=== PATIENT | female | born 1960 | race Caucasian/White ===

== ENCOUNTER 2024-06-03 15:13 | Inpatient (IN) | payer BC, SELFPAY ==
[2024-06-03] VITALS (12 sets, daily range): BP systolic 109–141; BP diastolic 71–98; BMI 33.9
--- NOTE | 2024-06-03 10:38 | W.PN.CARDCBS ---
Addendum entered and electronically signed by Aroldo Epstein DO 06/03/24 15:16:
Attestation: I have seen and examined the patient. I can confirm Ms. Gregory's findings and I agree with her assessment and plan as documented.
63-year-old female with complex past medical history including hypertension, hyperlipidemia, SLE, rheumatoid arthritis, total knee arthroplasty complication requiring chronic narcotic use, ascending aortic aneurysm, PAF status post PVI (01/09/2021)
with posterior thalamic CVA (10/2022) transferred from [facility]. The patient originally presented to [facility] and septic shock from multifocal pneumonia. She was aggressively volume repleted and started on pressors. She required
intensive care. She was placed on broad-spectrum antibiotics. She complained of right upper quadrant pain which was evaluated with CT and ultrasound, both of which were unrevealing. There is right upper quadrant pain was ultimately felt to be
referred pain from her pneumonia as it abated with recovery of her pulmonary function. She has completed a course of antibiotics with today being her last dose of amoxicillin/clavulanic acid.
After 3-4 days of admission and treatment, the patient was generally improving but began to complain of left-sided chest pain with associated dizziness and hypotension. She had persistent nausea which had been present throughout her entire
hospitalization. Troponin was initially positive on 150 at the time of admission but did trend down. Unfortunately, the troponin remained low-level positive, never entirely normalizing in spite of resolution of her sepsis and acute kidney injury.
She has a chronic left bundle branch block but developed sinus tachycardia. Cardiology was consulted during this admission and prescribed metoprolol and amiodarone which assisted with heart rate control. Echocardiogram was performed and showed a
new cardiomyopathy with possible distal anteroapical hypokinesis, LVEF estimated at 40-45%. Given her dizziness, she underwent CT head which was negative. Because of her new cardiomyopathy with low-level troponin elevation and regional wall motion
abnormality, [facility] was consulted for cardiac catheterization.
On arrival, the patient reports that she is currently chest pain-free. She reports that she has been having left-sided chest discomfort when she performs any activity. She ambulates with a walker at baseline due to neuropathy from medication as
well as the chronic pain from her total knee replacement and degenerative disc disease. When she is active, such as vacuuming at home, she reported chest discomfort, similar to that which she felt at [facility]. She denies any explicit
dizziness at the time of my interview.
She underwent cardiac catheterization to clarify her coronary anatomy. Her coronary angiography demonstrates no significant coronary artery disease.
The internal medicine service has been very gracious, agreeing to admit the patient to their service for ultimate disposition. From a cardiac standpoint, we will focus on adding guideline directed medical therapy for her cardiomyopathy. We will
maintain apixaban 5 mg twice daily for secondary prevention of CVA.
Physical therapy and Occupational Therapy will be consulted.
Original Note:
Today's Communication / Plan
-
C today
resume eliquis post cath when stable
check creat post dye load
Impression / Plan
-
This is the CARDIOLOGY CONSULT summary.
Full consult scanned into chart.
PCP: Jurgen Wells MD
CDY: Thanh rBowne MD
64 y/o, PMH sig for PAF w/prior PVI (12/2020), CVA (10/2022), stable thoracic Ao aneurysm, LBBB, HTN, HLD, Lupus, RA, pulmonary nodules, spinal compression fracture with chronic opioid dependence, lymphedema, osteomyelitis, DJD, anxiety. FH CAD
w/father having 4 NH before age 41, PCI and CABG. Non smoker, non drinker.
Presented to [facility] ER on 05/25/24 with generalized weakness with GI issues including diarrhea, nausea, vomiting. She was septic with BPs 60s and HR 150s in rapid AF, lactic acid up to 16, creat up to 2.0, CT chest with multifocal pna, coronary
calcifications, partially imaged left thyroid mass, and gallstones with distended gallbladder. Treated per sepsis protocol requiring pressors, fluid replacement, and antibiotics. She improved and had complained of some chest pain/discomfort. HS
troponins elevated 150-140s. Echo on 05/30 with decreased LVSF, EF 40%, septal DK and inferior HK.
She has remained stable off pressors and transferred for [facility] today.
Echo 05/30- mild LV enlargement w/mild CLVH, mild-mod LV dysfunction w/EF 40%, septal DK, inf HK, impaired LV relaxation
mild bi-atrial enlargement, limited view of AV, mod-severe - PG 39/MG 23, CHACORTA 1/21cm2, c/w low flow/low gradient d/t decreased EF.
PASP 41, mild pulm HTN, small pericardial effusion without tamponade.
IMPRESSION/PLAN:
Acute sepsis/Multifocal PNA/cholecystitis
improved status
will need followup diagnostics
to be managed per admitting service
ACS/Cardiomyopathy, EF 40%
EF drop from 50% (10/2022) to 40%
elevated troponin 155-->143- likely demand ischemia d/t sepsis but cannot rule out CAD
coronary calcifications noted on CT chest
[facility] today
aspirin given this morning
continue metoprolol if BP can tolerate
monitor creat post dye load
plan pending cath results
followup at [facility] at d/c
JULIETH- baseline creat 0.9 and had been up to 2.0
today it's 0.7, GFR>60
will hydrate post cath and repeat in AM
PAF, prior PVI (12/2020)
currently in SR 90s w/LBBB
[id number] (gender, htn, cva)
eliquis on hold for heparin gtt- resume post cath when stable
HLD- check lipid profile
continue statin, cholestyramine
CVA (10/2022)
prior TIA (2017) r/t PFO- treated at [facility]- not noted on echo from 10/2022
stable with resolution of presenting symptoms but has slow speech with some slurring of words noted, as before
continue aspirin
Thoracic Ascending Ao Aneurysm-
4.8cm on CT scan 11/2020- stable compared to prior imaging
recent outpt CT Chest ordered- authorization just granted- pt to schedule
Spinal compression fx/Chronic pain with opioid dependence
RA/Lupus- on chronic steroids
Lymphedema- LE wraps, managed per PCP
Progress Note - Licensed Insurance Sales Agent
Subjective
Date of Service: June 03, 2024
--- NOTE | 2024-06-03 14:40 | ITS.CL.CATH ---
Supervisor Respiratory - Catheterization
Cardiac Catheterization
Procedure Report:
CARDIAC CATHETERIZATION REPORT
Date of Procedure: 06/03/2024
Referring: Aroldo Saleem D.O.
INDICATION: New cardiomyopathy, low-level troponin elevation.
PROCEDURE:
1. Coronary angiography.
A total of 27 minutes of procedural/moderate sedation was utilized. An independent forensic medical examiner was present to assist with and help manage the patient's level of consciousness and physiologic status.
ACCESS:
1. 6 Libyan right radial artery using a modified Seldinger technique.
CATHETERS:
1. 5 Libyan JR4.
2. 5 Libyan JL 5.
HEMODYNAMIC DATA
Weight (kg): 116.6
AO (s/d/x, mmHg): 118/88/103
LV (s/x mmHg): Not obtained.
LEFT VENTRICULOGRAPHY: Not performed.
CORONARY ANGIOGRAPHY
Dominance: Right.
Left Main: Large size, trifurcating vessel. There is no coronary artery disease.
LAD: Normal size vessel giving rise to 1 significant diagonal before wrapping around the apex. There is a 30-40% lesion in the ostium of the diagonal.
Ramus: Large size vessel supplying the overwhelming majority of the lateral wall. There is no coronary artery disease.
Circumflex: Normal size, nondominant vessel that is essentially a single obtuse marginal. There is no coronary artery disease.
RCA: Normal size, dominant vessel. There are minor luminal irregularities. There is mild to moderate tortuosity of the mid vessel.
INTERVENTION(S)
None.
Closure Device: Vascular band.
Radiation (mGy): 363.32
DAP (cm2.Gy): 30.7711
Fluoroscopy time (minutes): 2.9
CONCLUSIONS
1. Right dominant circulation with luminal irregularities in the RCA and a 30-40% lesion in the ostium of the diagonal.
2. No ischemic nidus for troponin elevation.
RECOMMENDATIONS:
1. Expectant management after cardiac catheterization via right radial approach.
2. Limited weight bearing on the right wrist for one week.
3. OMT/GDMT as hemodynamics to tolerate.
4. Primary prevention with high-dose, high potency statin.
5. Surveillance of aortic valve given progression to moderate/severe.
6. Repeat echocardiogram in 90 days after initiation of GDMT.
Copy to: Sheila Browne M.D., Aroldo Saleem D.O., Jurgen Wells M.D.
Aroldo Epstein DO, FACC, FACP
[2024-06-03] MEDS: NSS 1000 IV (15:10)
--- NOTE | 2024-06-03 15:12 | HPS.HSE ---
Addendum entered and electronically signed by Eliseo Rosales MD 06/03/24 16:01:
I saw and examined the patient.
The WASTE MACHINE OFFBEARER's note was reviewed and I agree with the note.
Patient is a 64-year-old female with past medical history of thalamic stroke, history of seizures, chronic pain and narcotic dependence, history of goiter, paroxysmal atrial fibrillation with history of ablation/PVI, moderate to severe aortic
stenosis, essential hypertension, rheumatoid arthritis on chronic steroids, history of lupus, degenerative spine, osteoporosis, Gilbert's disease was sent from [facility] for impression emergent heart catheterization. Patient was
hospitalized at [facility] last week and was diagnosed to have multifocal pneumonia/septic shock and was started on broad-spectrum antibiotic and vasopressors. Patient had improvement of his symptoms although after 3 to 4 days
posthospitalization patient started to having sternal chest discomfort. Patient already was known to having hide troponin of 100+ on admission which was attributed to septic shock. Patient was also having sinus tachycardia for which patient was
started on amiodarone/Toprol. Cardiology was involved in care who evaluated patient and echocardiogram showed decline in EF to 40% and moderate to severe . cardiology at [facility] recommended for patient to undergo heart catheterization for
further evaluation of coronary artery disease. Patient was sent to [place] and underwent left heart catheterization by cardiology, which showed noncritical RCA stenosis, no stenting was done. Post heart catheterization patient being transferred
to telemetry floor for further monitoring. Hospitalist service were contacted for admission and management of other noncardiac problems.
HEENT: No pallor, cyanosis, or jaundice. Throat clear.
NECK: Supple. No JVD.
RESPIRATORY: Lungs clear to auscultation.
CVS: S1, S2 normal. RRR. No murmur, rub or gallop.
ABDOMEN: Soft, non-tender. No distension. BS+/normal.
EXTREMITIES: No peripheral cyanosis or edema.
MANAGER INSTALLATION: AOx3. No focal deficits.
Chest pain - ACS ruled out
Troponin elevation from Type II OK
Acute systolic heart failure
-Patient have undergone left heart catheterization today and did not show any critical coronary stenosis, no stenting was done
-Echocardiogram showed decline in EF of 40%, moderate to severe
-Cardiology planning for patient to be restarted on GDMT
-Monitor volume may require diuretic dosing if any signs of volume
recovering multifocal pneumonia
Resolved septic shock
-patient finished course of antibiotic at [facility]
-Reported episode of fever yesterday by hospitalist at [place]
- Monitor temperature curve and repeat septic workup if patient starts spiking fever again
-Continue monitoring off of antibiotic
Chronic pain and narcotic dependence
-Continue patient on oxycontin 30mg q12h prn and Oxycodne IR 10mg prn
RA
h/o of Lupus
-patient on chronic steroids of prednisone 5mg/d
-Also on xeljanz bid, will hold fo
-continue for now
Full code
Original Note:
Family Physician
-
Family Physician: Jurgen Wells
Chief Complaint
-
Chest Pain
History of Present Illness
Patient is a 64 y/o female past medical history of prior left thalamic stroke, paroxysmal atrial fibrillation, CPRS, chronic opioid dependence, rheumatoid arthritis and lupus who transferred from [facility] ([facility]) to [facility] () for cardiac catheterization. Patient was initially admitted to [facility] on May 25 for septic shock secondary to pneumonia. Initially she required intensive care management with pressors, IVFs and IV antibiotics. Patient's troponin was
elevated initially thought to be related to septic shock. However, during her stay she complained of chest pain and echocardiogram revealed a new cardiomyopathy with possible distal anteroapical hypokinesis and LVEF 40-45%. Due to persistent low
level troponin elevation and new cardiomyopathy she was transferred to for cardiac catheterization. I evaluated the patient in the research laboratory specialist recovery following her cardiac catheterization which did not reveal any significant coronary artery
disease. Patient reports no complaints at the present time.
Medical History
Past Medical History
Past Medical History: Reports Other
Additional Past Medical History:
Left Thalamic Stroke
Paroxysmal Atrial Fibrillation, prior PVI
Essential Hypertension
Hyperlipidemia
COPD
Complex Regional Pain Syndrome
Spinal Compression Fracture
Chronic Pain with Opioid Dependence
Neuropathy
Lupus
Rheumatoid Arthritis
Chronic Lower Extremity Lymphedema
Anxiety
Past Surgical History: Reports Other
Additional Past Surgical History:
Hysterectomy
Right Total Knee Replacement
Social History
Tobacco: Former Smoker (Quit 2018)
Alcohol: None
Personal: Single
Living: Alone
Family History
Family History: Not pertinent
Allergies / Home Medications
Allergies reflects when Allergies were last updated in [employer].
Home Medications with original date entered in [employer]
Allergy/Medication List:
Allergies
Allergy/AdvReac Type Severity Reaction Status Date / Time
abatacept [From Orencia] Allergy Swelling Verified 06/03/24 13:24
and rash
acetaminophen [From Vicodin] Allergy Vomiting Verified 06/03/24 15:14
amitriptyline [From Elavil] Allergy Vomiting Verified 06/03/24 15:14
Benzodiazepines Allergy Unknown Verified 06/03/24 15:14
diazepam Allergy Vomiting Verified 06/03/24 15:14
hydrocodone [From Vicodin] Allergy Vomiting Verified 06/03/24 15:14
infliximab [From Remicade] Allergy Swelling Verified 06/03/24 13:24
and rash
methotrexate Allergy Vomiting Verified 06/03/24 15:14
nortriptyline Allergy Unknown Verified 06/03/24 15:14
rituximab [From Rituxan] Allergy peripheral Verified 06/03/24 13:24
neurapthy
and Gallo's
Palsy
Home Medications
pregabalin 150 mg capsule (Lyrica) 150 mg PO TID Pain 12/25/20
apixaban 5 mg tablet (Eliquis) 5 mg PO BID #60 tabs 03/31/21
alendronate 70 mg tablet 70 mg PO FR@0700 osteoporosis 05/24/21
furosemide 40 mg tablet 20 mg PO DAILY Fluid Retention/Swelling 05/24/21
cyclobenzaprine 10 mg tablet 10 mg PO HSPRN PRN muscle spasm 11/04/22
oxycodone 10 mg tablet 10 mg PO QID Pain 11/04/22
oxycodone 30 mg tablet,crush resistant,extended release 12 hr (OxyContin) 30 mg PO Q12H Pain 11/04/22
prednisone 5 mg tablet 5 mg PO DAILY lupus 11/04/22
rosuvastatin 20 mg tablet 20 mg PO HS High Cholesterol 11/04/22
aspirin 81 mg tablet,delayed release 81 mg PO DAILY #30 tabs 11/09/22
cholestyramine 4 gram oral powder for suspension in a packet 4 g PO DAILY 06/03/24
diphenoxylate-atropine 2.5 mg-0.025 mg tablet 1 tab PO QIDPRN PRN diarrhea 06/03/24
metoprolol succinate 50 mg tablet,extended release 24 hr 50 mg PO DAILY 06/03/24
ondansetron HCl 4 mg tablet 4 mg PO Q6H PRN nausea 06/03/24
sertraline 50 mg tablet 75 mg PO DAILY 06/03/24
tofacitinib 10 mg tablet (Xeljanz) 10 mg PO BID 06/03/24
Review of Systems
-
A 12 point ROS was completed and negative except as noted: Yes
Physical Exam
Vital Signs
Vital Signs
Temp Pulse Resp BP Pulse Ox
98.8 F 99 24 126/86 96
06/03/24 13:21 06/03/24 14:50 06/03/24 14:50 06/03/24 14:50 06/03/24 14:50
Physical Exam
General: Comfortable and Conversant
HEENT: Anicteric and Moist mucous membranes
Respiratory: Clear and Non Labored Respirations
Cardiac: S1/S2, Regular Rhythm and Murmur
GI: Soft and Non Tender
Rectal: Deferred by Provider
Musculoskeletal: No Clubbing, No Cyanosis and Other (Non-pitting lower extremity edema)
Skin: Warm and Dry
Neuro: Awake, Alert, Oriented and Nonfocal/grossly intact
Psych: Calm
Data Reviewed
-
Lab Data: Labs Reviewed by me
Old Records: Reviewed
Impression/Plan
-
Cardiomyopathy
Moderate / Severe Aortic Stenosis
-Reviewed with Cardiology
-Plan for goal directed medical therapy
Recent Septic Shock secondary to Pneumonia
-Patient completed coarse of Augmentin
-Monitor for recurrent fevers
Recent Acute Kidney Injury
-Creatinine normalized at time of transfer
-Recheck creatinine in AM following IV dye for cardia ccath
Left Thalamic Stroke
-Patient with slow speech and occasional slurred speech at baseline
-Continue aspirin and Eliquis
Paroxysmal Atrial Fibrillation, prior PVI
-Continue Eliquis for anticoagulation
-Continue metoprolol for rate control
Essential Hypertension
-Continue metoprolol
Hyperlipidemia
-Continue Crestor
Complex Regional Pain Syndrome
Spinal Compression Fracture
Chronic Pain with Opioid Dependence
-Continue OxyContin and Oxycodone as prior to admission
-Continue Lyrica
Lupus / Rheumatoid Arthritis
-Continue Prednisone
-Patient maintained on Xeljanz as outpatient
Anxiety
-Continue sertraline
DVT proph: Eliquis
Code Status: Full Code
[2024-06-03] MEDS: LYRICA 150 MG PO ×2 (17:03→21:34)
--- NOTE | 2024-06-03 18:39 | PTCARENOTE ---
Received patient at 1630 from cardiac medical lab director. Pt oriented to room. [facility] to [facility] for Left heart Catheterization. Please see Post Angiography flow sheet for site checks. Pt had Sorensen
discontinued at 0930 am at [facility]. 1815 pt voided 50 cc of urine on bed reid. Bladder scanned for 153. Dr. Rosales made aware. will continue to monitor. IVF running post medical lab director. Made patient comfortable. Cont to assess patient status.
[2024-06-03] MEDS: ELIQUIS 5 MG PO (19:48)
[2024-06-03] MEDS: OXYCONTIN (CONTROLLED RELEASE) 30 MG PO (19:48)
[2024-06-03] MEDS: PHENERGAN 25 MG PO (20:52)
[2024-06-03] MEDS: DESENEX/MITRAZOL/ZEASORB 1 APPLIC TOPICAL (20:52)
[2024-06-03] MEDS: TYLENOL 1000 MG PO (20:53)
[2024-06-03] MEDS: CRESTOR 20 MG PO (21:34)
[2024-06-03 22:37] LABS: % Basophils 0.2 % (0-2); % Eosinophils 5.4 % (0-6); % Immature Granulocytes 0.3 % (0-0.5); % Lymphocytes 21.4 % (20.5-51.1); % Monocytes 10.3 % (1.7-9.3); % Neutrophils 62.4 % (42.2-75.2); Absolute Eosinophils 0.3 10^3/uL (0-0.7); Absolute Lymphocytes 1.3 10^3/uL (1.2-3.4); Absolute Monocytes 0.6 10^3/uL (0.1-0.6); Absolute Neutrophils 3.7 10^3/uL (1.4-6.5); Hematocrit 33.4 % (37.0-47.0); Hemoglobin 11.4 g/dL (12.0-16.0); Mean Corp Hgb Conc. 34.1 g/dL (33.0-37.0); Mean Corpuscular Hgb 29.2 pg (27.0-31.0); Mean Corpuscular Volume 85.4 fL (81.0-99.0); Mean Platelet Volume 9.3 fL (7.4-10.4); Nucleated Red Blood Cells % 0 %; Platelet Count 280 10^3/uL (130-400); Red Blood Cell Count 3.91 10^6/uL (4.20-5.40); White Blood Cell Count 5.9 10^3/uL (4.8-10.8)
[2024-06-03] MEDS: ROXICODONE 10 MG PO (23:52)
[2024-06-04] VITALS (8 sets, daily range): BP systolic 92–121; BP diastolic 70–85; PULSE 87; O2SAT 93–95; BMI 32.3
--- NOTE | 2024-06-04 00:12 | W.PN.UPDATE ---
Update Note
Progress Note Update
covid, flu, blood culturs, cbc, bmp.
[2024-06-04 00:45] LABS: COVID-19 Antigen Negative (Negative)
[2024-06-04 01:04] LABS: Urine Albumin 1+ (Neg - Trace); Urine Bilirubin Negative (Negative); Urine Character Clear (Clear); Urine Color Yellow; Urine Glucose Negative (Negative); Urine Ketone 3+ (Negative); Urine Leukocyte Negative (Negative); Urine Nitrite Negative (Negative); Urine Occult Blood 2+ (Negative); Urine Urobilinogen Negative (Neg - 1+)
[2024-06-04 01:15] LABS: Urine Bacteria Few (Negative); Urine Red Blood Cell 0-2 /HPF (0-2); Urine Yeast Moderate (Negative)
[2024-06-04] MEDS: ANESTHETIC LOZENGE 1 LOZENGE PO ×2 (01:53→20:31)
[2024-06-04] MEDS: PHENERGAN 25 MG PO (01:59)
[2024-06-04] MEDS: QUESTRAN PO (06:02)
[2024-06-04] MEDS: TOPROL XL 50 MG PO (09:38)
[2024-06-04] MEDS: ELIQUIS 5 MG PO ×2 (09:39→20:26)
[2024-06-04] MEDS: ASPIR LOW (ENTERIC COATED) 81 MG PO (09:39)
[2024-06-04] MEDS: ZOLOFT 75 MG PO (09:39)
[2024-06-04] MEDS: DELTASONE 5 MG PO (09:39)
[2024-06-04] MEDS: LYRICA 150 MG PO ×3 (09:41→20:29)
[2024-06-04] MEDS: OXYCONTIN (CONTROLLED RELEASE) 30 MG PO ×2 (09:41→20:30)
[2024-06-04] MEDS: FLUSH (NSS) 1 FLUSH IV ×2 (09:42→09:43)
[2024-06-04] MEDS: DESENEX/MITRAZOL/ZEASORB 1 APPLIC TOPICAL ×2 (09:46→20:25)
[2024-06-04 10:06] LABS: Hematocrit 33.3 % (37.0-47.0); Hemoglobin 11.4 g/dL (12.0-16.0); Mean Corp Hgb Conc. 34.2 g/dL (33.0-37.0); Mean Corpuscular Hgb 29.1 pg (27.0-31.0); Mean Corpuscular Volume 84.9 fL (81.0-99.0); Mean Platelet Volume 9.7 fL (7.4-10.4); Platelet Count 283 10^3/uL (130-400); Red Blood Cell Count 3.92 10^6/uL (4.20-5.40); Red Cell Dist. Width 14.2 % (11.5-14.5); White Blood Cell Count 5.3 10^3/uL (4.8-10.8)
--- NOTE | 2024-06-04 10:17 | W.PN.CD ---
Today's Communication / Plan
-
cath sitre fine
stable post cath. no obstructive CAD
ultimately will optimzie GDMT as BP and renal function permit.
Awating follow up labs ( wait and assess stability of renal function prior to considering RD/ARBor RAMON or MRA)
Impression / Plan
-
This is the CARDIOLOGY CONSULT summary.
Full consult scanned into chart.
PCP: Jurgen Wells MD
CDY: Thanh Browne MD
64 y/o, PMH sig for PAF w/prior PVI (12/2020), CVA (10/2022), stable thoracic Ao aneurysm, LBBB, HTN, HLD, Lupus, RA, pulmonary nodules, spinal compression fracture with chronic opioid dependence, lymphedema, osteomyelitis, DJD, anxiety. FH CAD
w/father having 4 [place] before age 41, PCI and CABG. Non smoker, non drinker.
Presented to [facility] ER on 05/25/24 with generalized weakness with GI issues including diarrhea, nausea, vomiting. She was septic with BPs 60s and HR 150s in rapid AF, lactic acid up to 16, creat up to 2.0, CT chest with multifocal pna, coronary
calcifications, partially imaged left thyroid mass, and gallstones with distended gallbladder. Treated per sepsis protocol requiring pressors, fluid replacement, and antibiotics. She improved and had complained of some chest pain/discomfort. HS
troponins elevated 150-140s. Echo on 05/30 with decreased LVSF, EF 40%, septal DK and inferior HK.
She has remained stable off pressors and transferred to for [facility] today.
Echo 05/30- mild LV enlargement w/mild CLVH, mild-mod LV dysfunction w/EF 40%, septal DK, inf HK, impaired LV relaxation
mild bi-atrial enlargement, limited view of AV, mod-severe - PG 39/MG 23, CHACORTA 1/21cm2, c/w low flow/low gradient d/t decreased EF.
PASP 41, mild pulm HTN, small pericardial effusion without tamponade.
Cath 06/03/24
CONCLUSIONS
1. Right dominant circulation with luminal irregularities in the RCA and a 30-40% lesion in the ostium of the diagonal.
2. No ischemic nidus for troponin elevation.
IMPRESSION/PLAN:
Acute sepsis/Multifocal PNA/cholecystitis
improved status
managed per admitting service
ACS/Cardiomyopathy, EF 40%
EF drop from 50% (10/2022) to 40%
elevated troponin 155-->143- likely demand ischemia d/t sepsis but cannot rule out CAD
LHC - 06/04/23\\5 without obstructive disease
optimize GDMT. ( wait and assess stability of renal function prior to considering RD/ARBor RAMON or MRA)
JULIETH- baseline creat 0.9 and had been up to 2.0
monitor post cath
PAF, prior PVI (12/2020)
currently in SR 90s w/LBBB
[id number]=2 (gender, htn, cva)
eliquis resumed
HLD- check lipid profile
continue statin, cholestyramine
CVA (10/2022)
prior TIA (2017) r/t PFO- treated at [facility]- not noted on echo from 10/2022
stable with resolution of presenting symptoms but has slow speech with some slurring of words noted, as before
continue aspirin
Thoracic Ascending Ao Aneurysm-
4.8cm on CT scan 11/2020- stable compared to prior imaging
recent outpt CT Chest ordered- authorization just granted- pt to schedule
Spinal compression fx/Chronic pain with opioid dependence
RA/Lupus- on chronic steroids
Lymphedema- LE wraps, managed per PCP
Physical Exam
Vital Signs/Labs
Vital Signs
Temp Pulse Resp BP Pulse Ox
98.3 F 92 18 120/76 96
06/04/24 07:20 06/04/24 09:38 06/04/24 07:20 06/04/24 09:38 06/04/24 07:20
06/03/24 06/04/24 06/05/24
06:59 06:59 06:59
Actual Weight 111.13 kg
06/04/24 09:38
Physical Exam
Constitutional: No acute distress
EENT: Anicteric
Cardiovascular: Rhythm & rate is regular
Respiratory: Wheeze Absent, Rhonchi Absent and Other (transmission of upper airway sounds)
GI: Soft and Non tender
Neuro/Psych: Alert and Oriented
Other: Cath Site (fine)
Data Reviewed
-
Date of Service: June 04, 2024
Medical Decision Making: Reviewed Test Results
Echo: Report Reviewed by me
X-Ray/CT/US/MRI/NUC/PET: Report Reviewed by me
Medical Tests (PFT, Pathology etc): Report Reviewed by me
Labs: Labs Reviewed by me
[2024-06-04 10:35] LABS: Glycohemoglobin (HgbA1c) 5.6 % (4.0-5.6)
[2024-06-04 11:36] LABS: ALT (SGPT) 13 U/L (0-35); AST (SGOT) 29 U/L (14-36); Albumin 3.3 g/dl (3.5-5.0); Alkaline Phosphatase 75 U/L (38-126); Blood Urea Nitrogen 9 mg/dl (7-17); Calcium 8.7 mg/dl (8.4-10.2); Carbon Dioxide 20 mmol/L (22-30); Chloride 107 mmol/L (98-107); Estimated Creatinine Clearance > 125 ml/min; Glucose 80 mg/dl (70-99); HDL Cholesterol 27 mg/dl; LDL Cholesterol, Calculated 45 mg/dl; Potassium 3.6 mmol/L (3.5-5.1); Sodium 139 mmol/L (135-145); Total Bilirubin 1.2 mg/dl (0.2-1.3); Total Cholesterol 110 mg/dl (50-199); Total Protein 5.4 g/dl (6.3-8.2); Triglyceride 190 mg/dl (10-149); Very Low Density Lipoprotein 38 mg/dl (0-30); eGFR > 60.00
[2024-06-04] MEDS: QUESTRAN 4 GRAM PO (12:05)
--- NOTE | 2024-06-04 12:40 | W.PN.HOSP.TC ---
Today's Communication/Plan
-
f/u blood cs report
monitor off abx
pt/ot
GDMT per cardio
monitor renal function
Assessment / Plan
Assessment / Plan
Chest pain - ACS ruled out
Troponin elevation from Type II [place]
Acute systolic heart failure
-Patient have undergone left heart catheterization today and did not show any critical coronary stenosis, no stenting was done
-Echocardiogram showed decline in EF of 40%, moderate to severe
-Cardiology planning for patient to be restarted on GDMT
-Monitor volume may require diuretic dosing if any signs of volume
Fever episode
Recovering multifocal pneumonia
Resolved septic shock
- patient finished course of antibiotic at [facility]
- Patient spiked temperature of 100.6 Fahrenheit yesterday
- COVID check/UA negative. Blood culture pending
- If spikes fever again we will start empiric antibiotics
Complex Regional Pain Syndrome
Spinal Compression Fracture
Chronic Pain with Opioid Dependence
-Continue OxyContin and Oxycodone as prior to admission
-Continue Lyrica
RA
h/o of Lupus
-patient on chronic steroids of prednisone 5mg/d
-Also on xeljanz bid, will hold fo
-continue for now
Left Thalamic Stroke
-Patient with slow speech and occasional slurred speech at baseline
-Continue aspirin and Eliquis
Paroxysmal Atrial Fibrillation, prior PVI
-Continue Eliquis for anticoagulation
-Continue metoprolol for rate control
Essential Hypertension
-Continue metoprolol
Hyperlipidemia
-Continue Crestor
Anxiety
-Continue sertraline
-have reaction ot BZDs
DVT proph: Eliquis
Code Status: Full Code
Total time spent : 52 mins
Anticipated Discharge: 24 - 48 hours
Subjective/Interval History
-
Date of Service: June 04, 2024
No reported problems overnight
Patient had mild fever of 100.6 Fahrenheit
no other issues reported
Objective Data
-
Labs:
Laboratory Results
06/04/24
09:38
WBC 5.3
Hgb 11.4 L
Hct 33.3 L
Plt Count 283
Sodium 139
Potassium 3.6
Chloride 107
Carbon Dioxide 20 L
BUN 9
Creatinine 0.6
Glucose 80
Calcium 8.7
Total Bilirubin 1.2
AST 29
ALT 13
Alkaline Phosphatase 75
Vital Signs:
Vital Signs
Temp Pulse Resp BP Pulse Ox
99.6 F 90 18 100/74 97
06/04/24 11:22 06/04/24 11:22 06/04/24 11:22 06/04/24 11:22 06/04/24 11:22
I&O
06/03/24 06/04/24 06/05/24
06:59 06:59 06:59
Intake Total 1775 / 1775
Output Total 450 / 450 900 / 900
Balance 1325 / 1325 -900 / -900
Review of Systems
-
Respiratory: Reports No Symptoms
Cardiac: Reports No Symptoms
Abdomen/GI: Reports No Symptoms
Physical Exam
-
General: No Apparent Distress and Comfortable
HEENT: Negative Oxygen
Respiratory: Clear to Auscultation
Cardiac: Regular Rhythm and S1/S2; Negative Murmur or Rub
GI: Soft, Nontender and Nondistended
Musculoskeletal: No Edema
Neuro: Awake, Alert, Oriented, No Motor Deficits and Nonfocal/Grossly Intact
Psych: Calm
[2024-06-04] MEDS: MYCOSTATIN ORAL SUSPENSION 5 ML PO ×2 (16:15→20:26)
[2024-06-04] MEDS: ROXICODONE 10 MG PO (16:20)
[2024-06-04] MEDS: LOMOTIL 1 TABLET PO (16:23)
--- NOTE | 2024-06-04 16:38 | CM ---
medical records manager reviewed patient's chart and met with patient and patient lives in a 1st floor apartment with no steps to enter, patient is independent with adl's and uses a walker with ambulation, patient no longer drives since her stroke, per patient
she is on the wait list for senior housing where patient will be able to have a walk in shower that will be much safer than her current set up.
PCP: Dr. Jurgen Wells
Pharmacy [facility] in [place]
Plan; Per physical therapy recommendation is for skilled placement options reviewed with patient and patient has selected [facility], referral sent through [employer], patient to talk to her friends and provided other skilled options.
--- NOTE | 2024-06-04 17:55 | PTCARENOTE ---
patient unable to urinate in room bathroom due to space and set up- ambulated with rollator to visitor bathroom down fox- (larger space and close to sink), patient needing space to move right leg and sink to place hand in warm water. , similar to
set up at home- patient urinated moderate amount of urine and mod amount of loose brown stool. ambulated back to room. plan of care on going.
[2024-06-04] MEDS: CRESTOR 20 MG PO (20:26)
[2024-06-05] MEDS: ROXICODONE 10 MG PO ×2 (01:07→17:57)
[2024-06-05 03:54] VITALS: BP 100/52
[2024-06-05] MEDS: QUESTRAN 4 GRAM PO (05:21)
[2024-06-05 06:00] VITALS: BMI 32.7
[2024-06-05 06:42] LABS: Hematocrit 29.3 % (37.0-47.0); Hemoglobin 10.1 g/dL (12.0-16.0); Mean Corp Hgb Conc. 34.5 g/dL (33.0-37.0); Mean Corpuscular Hgb 28.9 pg (27.0-31.0); Mean Platelet Volume 10.2 fL (7.4-10.4); Platelet Count 265 10^3/uL (130-400); Red Blood Cell Count 3.49 10^6/uL (4.20-5.40); Red Cell Dist. Width 13.9 % (11.5-14.5); White Blood Cell Count 6.7 10^3/uL (4.8-10.8)
[2024-06-05 07:41] LABS: Blood Urea Nitrogen 11 mg/dl (7-17); Calcium 8.7 mg/dl (8.4-10.2); Carbon Dioxide 22 mmol/L (22-30); Chloride 104 mmol/L (98-107); Estimated Creatinine Clearance 117 ml/min; Glucose 90 mg/dl (70-99); Potassium 3.6 mmol/L (3.5-5.1); Sodium 137 mmol/L (135-145); eGFR > 60.00
[2024-06-05 08:19] VITALS: BP 116/67
--- NOTE | 2024-06-05 09:46 | W.PN.CD ---
Today's Communication / Plan
-
- Add some med rx for CM now and some later
- Case management consulted for ARNI and SGLT2-I cost
- Update echo to see if EF normalized, look at Asc Ao and aorta
- EKG here, hx LBBB
55 min spent caring for pt today
Impression / Plan
-
PCP: Jurgen Wells MD
CDY: Thanh Browne MD
Nonischemic troponin elevation
- No obstructive CAD at cath
- No cath related complications
- Stopped ASA
Non-ischemic cardiomyopathy, LVEF 40% at outside hospital
- Perhaps just from sepsis and perhaps will prove to be transient
- Add some med rx now and some later
- Case management consulted for ARNI and SGLT2-I cost
- Update echo to see if EF normalized
Non-obstructive CAD, max lesion 30-40% diag
LBBB
Aortic stenosis, progressive
PAF, s/p ablation/PVI (12/2020), prior ablation, on Eliquis
Thoracic Ascending Ao Aneurysm,4.8cm on CT scan 11/2020 => for outpatient CT
Resolved JULIETH
HLD, goal LDL less than 70
Remote CVA (10/2022), prior TIA (2018) r/t PFO- treated at [facility]- not noted on echo from 10/2022, single agent Eliquis
Spinal compression fx/Chronic pain with opioid dependence
RA/Lupus- on chronic steroids
Lymphedema- LE wraps, managed per PCP
Subjective:
No CP or dyspnea
Data:
Cath 06/03/2024: 30-40% ostial Diag, no other CAD. No LV gram, No AoV gradient obtained, No LVEDP obtained
Outside Echo 05/30/2024: Mild LV enlargement w/mild cLVH, LVEF 40%, septal DK, inf HK, impaired LV relaxation, mild TARA, limited view of AV, mod-severe - PG 39/MG 23, CHACORTA 1/21cm2, c/w low flow/low gradient , PASP 41, mild pulm HTN, small
pericardial effusion without tamponade.
Physical Exam
Vital Signs/Labs
Vital Signs
Temp Pulse Resp BP Pulse Ox
99 F 64 18 116/67 93
06/05/24 08:19 06/05/24 08:19 06/05/24 08:19 06/05/24 08:19 06/05/24 08:19
06/04/24 06/05/24 06/06/24
06:59 06:59 06:59
Actual Weight 111.13 kg 112.548 kg
06/05/24 05:47
06/05/24 05:47
Magnesium 2.0 mg/dl (1.6-2.3) 06/04/24 09:38
Triglycerides 190 mg/dl (10-149) H 06/04/24 09:38
LDL Cholesterol, Calc 45 mg/dl 06/04/24 09:38
VLDL Cholesterol, Calc 38 mg/dl (0-30) H 06/04/24 09:38
HDL Cholesterol 27 mg/dl 06/04/24 09:38
Physical Exam
Constitutional: No acute distress
EENT: Anicteric
Cardiovascular: Rhythm & rate is regular, Pedal edema is absent and Systolic murmur present
Respiratory: Respiratory effort normal and Lungs clear to auscul.
GI: Soft and Distention absent
Other: Cath Site (normal wrist site, good pulse)
Data Reviewed
-
Date of Service: June 05, 2024
[2024-06-05] MEDS: LYRICA 150 MG PO ×3 (10:06→20:08)
[2024-06-05] MEDS: ASPIR LOW (ENTERIC COATED) PO (10:07)
[2024-06-05] MEDS: OXYCONTIN (CONTROLLED RELEASE) 30 MG PO ×2 (10:07→20:07)
[2024-06-05] MEDS: ZOLOFT 75 MG PO (10:07)
[2024-06-05] MEDS: MYCOSTATIN ORAL SUSPENSION 5 ML PO ×4 (10:08→22:53)
[2024-06-05] MEDS: ELIQUIS 5 MG PO ×2 (10:08→20:07)
[2024-06-05] MEDS: TOPROL XL 50 MG PO (10:08)
[2024-06-05] MEDS: DELTASONE 5 MG PO (10:08)
[2024-06-05] MEDS: FLUSH (NSS) 1 FLUSH IV ×2 (10:12→10:13)
[2024-06-05] MEDS: LOMOTIL 1 TABLET PO (10:12)
--- NOTE | 2024-06-05 10:25 | W.PN.HOSP.TC ---
Today's Communication/Plan
-
d/c planning for snf rehab
Assessment / Plan
Assessment / Plan
Chest pain - ACS ruled out
Troponin elevation from Type II [place]
Acute systolic heart failure
-Patient have undergone left heart catheterization today and did not show any critical coronary stenosis, no stenting was done
-Echocardiogram showed decline in EF of 40%, moderate to severe
-Cardiology planning for patient to be restarted on GDMT
-Monitor volume may require diuretic dosing if any signs of volume
Fever episode
Recovering multifocal pneumonia
Resolved septic shock
- patient finished course of antibiotic at [facility]
- COVID check/UA negative. Blood culture negative for 24hrs.
- No further episodes of fever overnight, monitor T curve.
Urinary retention
- Bay catheter required to be replaced.
Complex Regional Pain Syndrome
Spinal Compression Fracture
Chronic Pain with Opioid Dependence
-Continue OxyContin and Oxycodone as prior to admission
-Continue Lyrica
RA
h/o of Lupus
-patient on chronic steroids of prednisone 5mg/d
-Also on xeljanz bid, will hold fo
-continue for now
Left Thalamic Stroke
-Patient with slow speech and occasional slurred speech at baseline
-Continue aspirin and Eliquis
Paroxysmal Atrial Fibrillation, prior PVI
-Continue Eliquis for anticoagulation
-Continue metoprolol for rate control
Essential Hypertension
-Continue metoprolol
Hyperlipidemia
-Continue Crestor
Anxiety
-Continue sertraline
-have reaction ot BZDs
DVT proph: Eliquis
Code Status: Full Code
Anticipated Discharge: Within 24 hours
Subjective/Interval History
-
Date of Service: June 05, 2024
patient required to have bay catheter re-inserted yesterday for retention
afebrile overnight
no other problems
Objective Data
-
Labs:
Laboratory Results
06/05/24
05:47
WBC 6.7
Hgb 10.1 L
Hct 29.3 L
Plt Count 265
Sodium 137
Potassium 3.6
Chloride 104
Carbon Dioxide 22
BUN 11
Creatinine 0.7
Glucose 90
Calcium 8.7
Vital Signs:
Vital Signs
Temp Pulse Resp BP Pulse Ox
99 F 64 18 116/67 93
06/05/24 08:19 06/05/24 10:08 06/05/24 08:19 06/05/24 10:08 06/05/24 08:19
I&O
06/04/24 06/05/24 06/06/24
06:59 06:59 06:59
Intake Total 1775 / 1775 1200 / 1200
Output Total 450 / 450 1875 / 1875
Balance 1325 / 1325 -675 / -675
Review of Systems
-
Respiratory: Reports No Symptoms
Cardiac: Reports No Symptoms
Abdomen/GI: Reports No Symptoms
Physical Exam
-
General: No Apparent Distress and Comfortable
HEENT: Negative Oxygen
Respiratory: Clear to Auscultation
Cardiac: Regular Rhythm and S1/S2; Negative Murmur or Rub
GI: Soft, Nontender and Nondistended
Musculoskeletal: No Edema
Neuro: Awake, Alert, Oriented, No Motor Deficits and Nonfocal/Grossly Intact
Psych: Calm
[2024-06-05] MEDS: DESENEX/MITRAZOL/ZEASORB 1 APPLIC TOPICAL ×2 (11:14→20:07)
[2024-06-05 11:21] VITALS: BP 112/73
--- NOTE | 2024-06-05 11:32 | CM ---
PT OT indicated SNF.
Pt requested [facility] [place]
Will need auth.
Spoke with Sharmin at [facility] she said nursing is evaluating and will china back with determination.
[facility] confirmed no copay. notified.
For Echo today.
PLAN To Snf after auth
[2024-06-05] MEDS: FLOMAX 0.4 MG PO (13:42)
[2024-06-05 15:54] VITALS: BP 110/70
[2024-06-05 19:30] VITALS: BP 115/58
[2024-06-05] MEDS: CRESTOR 20 MG PO (20:07)
[2024-06-05 23:22] VITALS: BP 99/58
[2024-06-06 03:10] VITALS: BP 103/65
[2024-06-06] MEDS: QUESTRAN 4 GRAM PO (05:40)
[2024-06-06 05:46] VITALS: BMI 32.4
[2024-06-06 07:30] VITALS: BP 101/69
--- NOTE | 2024-06-06 08:11 | W.PN.CD ---
Today's Communication / Plan
-
-add farxiga, no bp room for entresto or MRA
- lasix 20mg po prn wt gain or 3lb in a day or 5lb in 5 day. At home she can take it for worsened le edema or sob as she is unable to currently stand on a scale.
-check renal panel in 2 weeks and 6 weeks with results to me fax:# [phone]
-I will sign off please call with questions
Impression / Plan
-
PCP: Jurgen Wells MD
CDY: Thanh Browne MD
Nonischemic troponin elevation
- No obstructive CAD at cath
- No cath related complications
- Stopped ASA
Non-ischemic cardiomyopathy, LVEF 40% at outside hospital
- Perhaps just transietn from sepsis--ef 06/05/24 50-55%
-add farxiga, no bp room for entresto or MRA
- typically take furosemide daily at home, would change this to prn on discharge to rehab given new farxiga and soft bp. Give lasix 20mg po prn wt gain or 3lb in a day or 5lb in 5 day. At home she can take it for worsened le edema or sob as she is
unable to currently stand on a scale.
-check renal panel in 2 weeks and 6 weeks with results to me fax:# [phone]
Non-obstructive CAD, max lesion 30-40% diag
LBBB
Aortic stenosis, progressive
PAF, s/p ablation/PVI (12/2020), prior ablation, on Eliquis
Thoracic Ascending Ao Aneurysm: reports CT Scan at OSH will request record
Resolved JULIETH
HLD, goal LDL less than 70
Remote CVA (10/2022), prior TIA (2018) r/t PFO- treated at [facility]- not noted on echo from 10/2022, single agent Eliquis
Spinal compression fx/Chronic pain with opioid dependence
RA/Lupus- on chronic steroids
Lymphedema- LE wraps, managed per PCP
Subjective:
No CP or dyspnea
Data:
Echo: 06/05/24 lv 50-55%, MIld , trace ar, PASP 23
Cath 06/03/2024: 30-40% ostial Diag, no other CAD. No LV gram, No AoV gradient obtained, No LVEDP obtained
Outside Echo 05/30/2024: Mild LV enlargement w/mild cLVH, LVEF 40%, septal DK, inf HK, impaired LV relaxation, mild TARA, limited view of AV, mod-severe - PG 39/MG 23, CHACORTA 1/21cm2, c/w low flow/low gradient , PASP 41, mild pulm HTN, small
pericardial effusion without tamponade.
Physical Exam
Vital Signs/Labs
Vital Signs
Temp Pulse Resp BP Pulse Ox
98.8 F 80 18 103/65 93
06/06/24 03:10 06/06/24 03:10 06/06/24 03:10 06/06/24 03:10 06/06/24 03:10
06/05/24 06/06/24 06/07/24
06:59 06:59 06:59
Actual Weight 248 lb 2 oz 245 lb 3 oz
Magnesium 2.0 mg/dl (1.6-2.3) 06/04/24 09:38
Triglycerides 190 mg/dl (10-149) H 06/04/24 09:38
LDL Cholesterol, Calc 45 mg/dl 06/04/24 09:38
VLDL Cholesterol, Calc 38 mg/dl (0-30) H 06/04/24 09:38
HDL Cholesterol 27 mg/dl 06/04/24 09:38
Physical Exam
Constitutional: No acute distress
Cardiovascular: Rhythm & rate is regular, JVD pressure is normal, Systolic murmur absent, Diastolic murmur absent and Pedal edema present (1+ bilaterally)
Respiratory: Respiratory effort normal and Rhonchi Present (diffuse)
Neuro/Psych: AO x 3
Other: Cath Site (RRA well healed no hematoma, normal pulse and cap refill)
Data Reviewed
-
Date of Service: June 06, 2024
Medical Decision Making: Review of Case with other Provider (Dr Rosales, will start farxiga , furosemide prn)
EKG: Other (sinus on tele)
[2024-06-06 08:16] LABS: Hematocrit 29.4 % (37.0-47.0); Mean Corpuscular Hgb 28.7 pg (27.0-31.0); Mean Corpuscular Volume 84.2 fL (81.0-99.0); Mean Platelet Volume 9.9 fL (7.4-10.4); Platelet Count 253 10^3/uL (130-400); Red Blood Cell Count 3.49 10^6/uL (4.20-5.40); Red Cell Dist. Width 13.9 % (11.5-14.5); White Blood Cell Count 4.6 10^3/uL (4.8-10.8)
[2024-06-06] MEDS: OXYCONTIN (CONTROLLED RELEASE) 30 MG PO ×2 (08:30→21:36)
[2024-06-06] MEDS: LYRICA 150 MG PO ×3 (08:30→21:37)
[2024-06-06 08:37] LABS: Blood Urea Nitrogen 6 mg/dl (7-17); Carbon Dioxide 23 mmol/L (22-30); Chloride 107 mmol/L (98-107); Estimated Creatinine Clearance 117 ml/min; Glucose 94 mg/dl (70-99); Potassium 3.3 mmol/L (3.5-5.1); Sodium 140 mmol/L (135-145); eGFR > 60.00
[2024-06-06] MEDS: MYCOSTATIN ORAL SUSPENSION 5 ML PO ×4 (08:38→21:33)
[2024-06-06] MEDS: ELIQUIS 5 MG PO (08:39)
[2024-06-06] MEDS: DELTASONE 5 MG PO (08:39)
[2024-06-06] MEDS: TOPROL XL 50 MG PO (08:39)
[2024-06-06] MEDS: ZOLOFT 75 MG PO (08:39)
[2024-06-06] MEDS: DIOVAN 80 MG PO (08:39)
[2024-06-06] MEDS: DESENEX/MITRAZOL/ZEASORB 1 APPLIC TOPICAL ×2 (08:40→21:37)
[2024-06-06] MEDS: FLOMAX 0.4 MG PO (08:41)
[2024-06-06] MEDS: ROXICODONE 10 MG PO ×2 (09:15→14:02)
[2024-06-06 11:18] VITALS: BP 98/56
--- NOTE | 2024-06-06 13:51 | W.PN.HOSP.TC ---
Today's Communication/Plan
-
add imodium prn
discharge planning for snf rehab
Assessment / Plan
Assessment / Plan
Chest pain - ACS ruled out
Troponin elevation from Type II [place]
Acute systolic heart failure
-Patient have undergone left heart catheterization today and did not show any critical coronary stenosis, no stenting was done
-Echocardiogram showed decline in EF of 40%, moderate to severe
-Cardiology planning for patient to be restarted on GDMT
-Monitor volume may require diuretic dosing if any signs of volume
Fever episode - resolved
Recovering multifocal pneumonia
Resolved septic shock
-patient finished course of antibiotic at [facility]
-COVID check/UA negative. Blood culture negative for 24hrs.
-No further episodes of fever overnight, monitor T curve.
Urinary retention
-Sorensen catheter required to be replaced.
Complex Regional Pain Syndrome
Spinal Compression Fracture
Chronic Pain with Opioid Dependence
-Continue OxyContin and Oxycodone as prior to admission
-Continue Lyrica
RA
h/o of Lupus
-patient on chronic steroids of prednisone 5mg/d
-Also on xeljanz bid, on hold.
-continue for now
Left Thalamic Stroke
-Patient with slow speech and occasional slurred speech at baseline
-Continue aspirin and Eliquis
Paroxysmal Atrial Fibrillation, prior PVI
-Continue Eliquis for anticoagulation
-Continue metoprolol for rate control
Essential Hypertension
-Continue metoprolol
Hyperlipidemia
-Continue Crestor
Anxiety
-Continue sertraline
-have reaction ot BZDs
DVT proph: Eliquis
Code Status: Full Code
Anticipated Discharge: Within 24 hours
Subjective/Interval History
-
Date of Service: June 06, 2024
Reported having some diarrhea
No other issues
Objective Data
-
Labs:
Laboratory Results
06/06/24
07:43
WBC 4.6 L
Hgb 10.0 L
Hct 29.4 L
Plt Count 253
Sodium 140
Potassium 3.3 L
Chloride 107
Carbon Dioxide 23
BUN 6 L
Creatinine 0.7
Glucose 94
Calcium 9.0
Vital Signs:
Vital Signs
Temp Pulse Resp BP Pulse Ox
98.9 F 84 18 98/56 93
06/06/24 11:18 06/06/24 11:18 06/06/24 11:18 06/06/24 11:18 06/06/24 11:18
I&O
06/05/24 06/06/24 06/07/24
06:59 06:59 06:59
Intake Total 1200 / 1200 1200 / 1200
Output Total 1875 / 1875 2300 / 2300
Balance -675 / -675 -1100 / -1100
Review of Systems
-
Respiratory: Reports No Symptoms
Cardiac: Reports No Symptoms
Abdomen/GI: Reports No Symptoms
Physical Exam
-
General: No Apparent Distress and Comfortable
HEENT: Negative Oxygen
Respiratory: Clear to Auscultation
Cardiac: Regular Rhythm and S1/S2; Negative Murmur or Rub
GI: Soft, Nontender and Nondistended
Musculoskeletal: No Edema
Neuro: Awake, Alert, Oriented, No Motor Deficits and Nonfocal/Grossly Intact
Psych: Calm
[2024-06-06] MEDS: IMODIUM 2 MG PO ×2 (14:02→21:36)
[2024-06-06 14:36] VITALS: BP 107/59
[2024-06-06 15:05] VITALS: BP 100/48
--- NOTE | 2024-06-06 16:21 | CM ---
PT OT indicated SNF.
Pt requested [facility] [place] SNF [place].
Spoke with Sharmin at [facility] she said nursing can accept her after auth
Pt will need [employer] Personal auth
NPI provided from Sharmin at [facility]
Pt requested ambulance [place]
[facility]
report [phone]
fax [phone]
PLAN To [facility] after auth
[2024-06-06] MEDS: CRESTOR 20 MG PO (21:33)
[2024-06-06 23:18] VITALS: BP 94/48
[2024-06-06] MEDS: NSS 250 IV (23:39)
[2024-06-07 01:54] VITALS: BP 93/57
[2024-06-07] MEDS: NSS 500 IV (02:22)
[2024-06-07] MEDS: QUESTRAN 4 GRAM PO (05:31)
[2024-06-07 05:44] VITALS: BMI 32.5
[2024-06-07 07:36] LABS: Hematocrit 27.9 % (37.0-47.0); Hemoglobin 9.4 g/dL (12.0-16.0); Mean Corp Hgb Conc. 33.7 g/dL (33.0-37.0); Mean Corpuscular Hgb 28.7 pg (27.0-31.0); Mean Corpuscular Volume 85.3 fL (81.0-99.0); Mean Platelet Volume 9.9 fL (7.4-10.4); Platelet Count 244 10^3/uL (130-400); Red Blood Cell Count 3.27 10^6/uL (4.20-5.40); White Blood Cell Count 3.7 10^3/uL (4.8-10.8)
[2024-06-07 08:00] VITALS: BP 94/58
[2024-06-07 08:36] LABS: Blood Urea Nitrogen 7 mg/dl (7-17); Calcium 8.9 mg/dl (8.4-10.2); Carbon Dioxide 23 mmol/L (22-30); Chloride 108 mmol/L (98-107); Estimated Creatinine Clearance 117 ml/min; Glucose 92 mg/dl (70-99); Potassium 3.4 mmol/L (3.5-5.1); Sodium 140 mmol/L (135-145); eGFR > 60.00
[2024-06-07] MEDS: ZOLOFT 75 MG PO (09:56)
[2024-06-07] MEDS: LYRICA 150 MG PO (09:56)
[2024-06-07] MEDS: OXYCONTIN (CONTROLLED RELEASE) 30 MG PO (09:56)
[2024-06-07] MEDS: FARXIGA 10 MG PO (09:57)
[2024-06-07] MEDS: DELTASONE 5 MG PO (09:57)
[2024-06-07] MEDS: DIOVAN 80 MG PO (09:57)
[2024-06-07] MEDS: TOPROL XL 50 MG PO (09:57)
[2024-06-07] MEDS: FLOMAX 0.4 MG PO (09:57)
[2024-06-07] MEDS: MYCOSTATIN ORAL SUSPENSION 5 ML PO ×2 (09:58→12:48)
[2024-06-07] MEDS: IMODIUM 2 MG PO (10:05)
[2024-06-07] MEDS: LOMOTIL 1 TABLET PO (10:05)
[2024-06-07] MEDS: DESENEX/MITRAZOL/ZEASORB 1 APPLIC TOPICAL (10:08)
[2024-06-07] MEDS: FLUSH (NSS) 1 FLUSH IV ×2 (10:08→10:12)
--- NOTE | 2024-06-07 10:13 | CM ---
Spoke with Sharmin at [facility] can accept her after auth
Spoke with Mayra [phone] Personal Authorization # [id number] from to 06/11/24 call [phone].
Information given to Sharmin at [facility]
Pt requested ambulance at [facility] Acute [facility] auth obtained [id number] . Medical nec form completed.
[facility]
report [phone]
fax [phone]
PLAN To [facility]
[2024-06-07 11:33] VITALS: BP 108/69
[2024-06-07] MEDS: ROXICODONE 10 MG PO (12:58)
--- NOTE | 2024-06-07 13:29 | W.PN.HOSP.TC ---
Today's Communication/Plan
-
d/c snf rehab
Assessment / Plan
Assessment / Plan
Chest pain - ACS ruled out
Troponin elevation from Type II [place]
Acute systolic heart failure
-Patient have undergone left heart catheterization today and did not show any critical coronary stenosis, no stenting was done
-Echocardiogram showed decline in EF of 40%, moderate to severe
-Cardiology planning for patient to be restarted on GDMT
-PRN lasix at discharge
-started on farxiga/also on diovan - cardio will f/u in office
Fever episode - resolved
Recovering multifocal pneumonia
Resolved septic shock
-patient finished course of antibiotic at [facility]
-COVID check/UA negative. Blood culture negative for 24hrs.
-No further episodes of fever overnight, monitor T curve.
Chronic diarrhea
-have episodic chronic diarrhea
-patient takes lomotil 2mg q4h and imodium prn, continue.
Urinary retention
-Sorensen catheter required to be replaced.
Complex Regional Pain Syndrome
Spinal Compression Fracture
Chronic Pain with Opioid Dependence
-Continue OxyContin and Oxycodone as prior to admission
-Continue Lyrica
RA
h/o of Lupus
-patient on chronic steroids of prednisone 5mg/d
-Also on xeljanz bid, on hold.
-continue for now
Left Thalamic Stroke
-Patient with slow speech and occasional slurred speech at baseline
-Continue aspirin and Eliquis
Paroxysmal Atrial Fibrillation, prior PVI
-Continue Eliquis for anticoagulation
-Continue metoprolol for rate control
Essential Hypertension
-Continue metoprolol
Hyperlipidemia
-Continue Crestor
Anxiety
-Continue sertraline
-have reaction ot BZDs
DVT proph: Eliquis
Code Status: Full Code
More than 30 minutes spent in discharge including
Final examination of the patient
Summarizing hospital stay
Instructions for continuing care to all relevant caregivers
Preparation of discharge records, prescriptions, and referral forms
Total time spent (in minutes): 39 mins
Anticipated Discharge: Today
Subjective/Interval History
-
Date of Service: June 07, 2024
no issues overnight
having some diarrhea
Objective Data
-
Labs:
Laboratory Results
06/07/24
07:28
WBC 3.7 L
Hgb 9.4 L
Hct 27.9 L
Plt Count 244
Sodium 140
Potassium 3.4 L
Chloride 108 H
Carbon Dioxide 23
BUN 7
Creatinine 0.7
Glucose 92
Calcium 8.9
Vital Signs:
Vital Signs
Temp Pulse Resp BP Pulse Ox
99.3 F 78 18 108/69 99
06/07/24 11:33 06/07/24 11:33 06/07/24 11:33 06/07/24 11:33 06/07/24 11:33
I&O
06/06/24 06/07/24 06/08/24
06:59 06:59 06:59
Intake Total 1200 / 1200 2370 / 2370
Output Total 2300 / 2300 2350 / 2350
Balance -1100 / -1100
Review of Systems
-
Respiratory: Reports No Symptoms
Cardiac: Reports No Symptoms
Abdomen/GI: Reports No Symptoms
Physical Exam
-
General: No Apparent Distress and Comfortable
HEENT: Negative Oxygen
Respiratory: Clear to Auscultation
Cardiac: Regular Rhythm and S1/S2; Negative Murmur or Rub
GI: Soft, Nontender and Nondistended
Musculoskeletal: No Edema
Neuro: Awake, Alert, Oriented, No Motor Deficits and Nonfocal/Grossly Intact
Psych: Calm
--- NOTE | 2024-06-07 14:11 | W.DCSUMMARY ---
Discharge Summary
Discharge Data
Date of Admission: 06/03/24
Date of Discharge: 06/07/24
-
Pending Results: No
Hospital Course
Discharging Physician : Dr Eliseo Rosales
Disposition : [facility] rehab
Primary care physician : Dr Jurgen Wells
Principal Discharge diagnosis :
Chest pain episode
Acute systolic heart failure
Troponin elevation from type II myocardial infarction
Multifocal pneumonia/sepsis
Urinary retention
Chronic Discharge diagnosis :
Chronic diarrhea
Complex regional pain syndrome
History of spinal cord compression fracture
History of stroke
History of rheumatoid arthritis
History of lupus
Essential hypertension
Hyperlipidemia
Generalized anxiety disorder
Ambulatory dysfunction
Hospital Course :
Patient is a 64-year-old female with above-mentioned past medical history was transferred from [facility] where patient was initially presented and treated for multifocal pneumonia/septic shock. During this hospitalization patient was
developing chest discomfort/pain and was evaluated by cardiology, based on the evaluation at [facility] patient was felt to have need of emergent left heart catheterization. Patient was transferred to [facility] for this
reason. Patient was taken to left heart catheterization which showed nonobstructive coronary artery disease and no stenting was done. Postprocedure patient was admitted to hospitalist service for further management of other medical issues. On
echocardiogram done in [facility] was showing decreased ejection fraction of 40%. Patient was started on some GDMT although not able to be maximized due to Hypotension issue. Cardiology postdischarge is planning to follow-up in the office
and further adjust GDMT based on patient improvement.
For patient multifocal pneumonia/sepsis patient had finished course of antibiotic at [facility]. Patient was noted to having fever of unknown origin and this was monitored during the hospital stay. Repeat workup with COVID/UA/blood
culture was done and was negative. No repeat antibiotics were provided. Patient fever subsided without any further intervention.
Patient also developed problem with urinary retention during the last hospital stay and a Bay catheter was in place, voiding trial was attempted post heart catheterization which failed and patient had required to be placed back on Bay catheter.
Patient interested in Bay to be removed as early as possible and was discussed that this can be done in rehab once patient is more active/mobile.
Post medical improvement patient discharged to [facility] for halfway facility based rehab.
Important imaging findings :
None
Procedure findings :
None
Discharge Plan
-
Patient Disposition: Retirement/SNF
Discharge Diagnosis/Procedures: Cardiac catheterization, Pneumonia, septic shock
Condition: Fair
Diet: Low Cholesterol
Activity: As tolerated
Driving Restrictions: No driving
Bathing Restrictions: OK to Shower
Blood Work: BMP in 2 and 6 weeks - Forward result to Dr Sheila Browne's office.
Stand Alone Forms: DC Instructions- Cath/EP Lab
Referrals:
Jurgen Wells MD [Family Provider] - in one week
Thanh Browne MD [Active] - 07/08/24 1:00 pm (Cardiology followup appointment)
Prescriptions:
New
dapagliflozin propanediol 10 mg Tablet
10 mg PO DAILY Qty: 30 2RF
tamsulosin 0.4 mg Capsule
0.4 mg PO DAILY Qty: 30 0RF
Rx Instructions:
STOP once bay is out and able to void
nystatin 100,000 unit/mL Suspension
5 ml PO QID Qty: 60 0RF
Rx Instructions:
FOR 10 days
loperamide 2 mg Capsule
2 mg PO Q4HPRN PRN (Reason: Diarrhea) Qty: 30 0RF
oxycodone 10 mg Tablet
10 mg PO QIDPRN PRN (Reason: moderate/severe pain) Qty: 14 0RF
oxycodone [OxyContin] 15 mg Tablet,Oral Only,Ext.Rel.12 Hr
30 mg PO Q12 Qty: 12 0RF
valsartan 80 mg Tablet
80 mg PO DAILY Qty: 30 0RF
Continued
pregabalin [Lyrica] 150 MG capsule
150 mg PO TID
alendronate 70 MG tablet
70 mg PO FR@0700
cyclobenzaprine 10 mg tablet
10 mg PO HSPRN PRN (Reason: muscle spasm)
rosuvastatin 20 mg tablet
20 mg PO HS
prednisone 5 mg Tablet
5 mg PO DAILY
metoprolol succinate 50 mg Tablet Extended Release 24 Hr
50 mg PO DAILY
Xeljanz 10 mg Tablet
10 mg PO BID
sertraline 50 mg Tablet
75 mg PO DAILY
cholestyramine 4 gram Powder In Packet
4 g PO DAILY
ondansetron HCl 4 mg Tablet
4 mg PO Q6H PRN (Reason: nausea)
Eliquis 5 MG tablet
5 mg PO BID Qty: 60 0RF
Changed
furosemide 40 MG tablet
20 mg PO DAILY PRN (Reason: wt gain or 3lb in a day or 5lb in 5 day) Qty: 0 0RF
diphenoxylate-atropine 2.5-0.025 mg Tablet
2 tab PO QIDPRN PRN (Reason: diarrhea) Qty: 0 0RF
Discontinued
oxycodone 10 mg tablet
10 mg PO QID
oxycodone [OxyContin] 30 mg tablet,oral only,ext.rel.12 hr
30 mg PO Q12H
aspirin 81 mg Tablet,Delayed Release (Dr/Ec)
81 mg PO DAILY Qty: 30 0RF
Discharge Orders:
Discharge Patient (As Directed); Ordered 06/07/24
Ordered By: Eliseo Rosales
Discharge Date and Time
Discharge Date/Time: 06/07/24 15:13
Print Language: SAMI
== END 2024-06-07 15:13 | DRG 286 ==
LOC: 4 EAST ACU 15:13
PROVIDERS: Internal Medicine Cardiovascular Disease; Nurse Practitioner; Nurse Practitioner Family; ADMITTING PHYSICIAN Hospitalist; FAMILY PHYSICIAN Family Medicine
PROC: 4A023N7 Measurement of Cardiac Sampling and Pressure, Left Heart, Percutaneous Approach (ICD-10-PCS; 2024-06-03)
PROC: B211YZZ Fluoroscopy of Multiple Coronary Arteries using Other Contrast (ICD-10-PCS; 2024-06-03)
DX: I42.8 Other cardiomyopathies (principal); I50.21 Acute systolic (congestive) heart failure; F11.20 Opioid dependence, uncomplicated; I11.0 Hypertensive heart disease with heart failure; I48.0 Paroxysmal atrial fibrillation; I35.0 Nonrheumatic aortic (valve) stenosis; M32.9 Systemic lupus erythematosus, unspecified; E78.5 Hyperlipidemia, unspecified; M06.9 Rheumatoid arthritis, unspecified; G89.29 Other chronic pain; I25.10 Atherosclerotic heart disease of native coronary artery without angina pectoris; F41.9 Anxiety disorder, unspecified; R33.8 Other retention of urine; R50.9 Fever, unspecified; G62.9 Polyneuropathy, unspecified; I89.0 Lymphedema, not elsewhere classified; Z96.651 Presence of right artificial knee joint; Z87.891 Personal history of nicotine dependence; Z86.73 Personal history of transient ischemic attack (TIA), and cerebral infarction without residual deficits; Z79.52 Long term (current) use of systemic steroids; Z79.01 Long term (current) use of anticoagulants; Z11.52 Encounter for screening for COVID-19; Z79.83 Long term (current) use of bisphosphonates
CPT/HCPCS: 80048; 80053; 80061; 81003; 81015; 83036; 83735; 85025; 85027; 87040; 87502; 87811; 93005; 93306; 93454; 97116; 97163; 97167; 97530; 97535; 99152; 99153; C1894; Q9967